=== PATIENT | male | born 1960 | race African-American/Black ===

== ENCOUNTER 2022-03-25 08:54 | Emergency (ER) | payer MEDICAID ==
[~2022-03-25] VITALS: Ht 157.5 cm; Wt 80.0 kg
[2022-03-25 08:56] VITALS: BP 111/79
[2022-03-25] MEDS ORDERED: PERM60CR4 TP (09:17)
== END 2022-03-25 09:32 | disposition home or self-care (01) ==
LOC: ER 08:54
DX: B86 Scabies (principal); I10 Essential (primary) hypertension; Z86.59 Personal history of other mental and behavioral disorders; Z98.890 Other specified postprocedural states
CPT/HCPCS: 99281

== ENCOUNTER 2023-01-04 13:54 | Emergency (ER) | payer MEDICAID, OTHER ==
[~2023-01-04] VITALS: Ht 177.8 cm; Wt 91.0 kg
[~2023-01-04 13:54] MED LIST: PERM60CR4 TP
[2023-01-04 13:55] VITALS: BP 135/74; PULSE 98; RESP 18; O2SAT 98
== END 2023-01-04 14:09 | disposition home or self-care (01) ==
LOC: ER 14:06
DX: T14.90XA Injury, unspecified, initial encounter (principal); I10 Essential (primary) hypertension; Z98.890 Other specified postprocedural states; Z86.59 Personal history of other mental and behavioral disorders; V89.2XXA Person injured in unspecified motor-vehicle accident, traffic, initial encounter; Y93.89 Activity, other specified; Y92.89 Other specified places as the place of occurrence of the external cause; Y99.8 Other external cause status
CPT/HCPCS: 99283

== ENCOUNTER 2024-01-10 14:47 | Emergency (ER) | payer OTHER ==
[~2024-01-10] VITALS: Ht 160 cm; Wt 65.0 kg
[2024-01-10 15:01] VITALS: BP 110/61; PULSE 98; RESP 16; TEMP 98; O2SAT 100
[2024-01-10] MEDS ORDERED: MUPI15CR11 TP (16:58)
== END 2024-01-10 18:11 | disposition home or self-care (01) ==
LOC: ER 15:55
DX: S50.861A Insect bite (nonvenomous) of right forearm, initial encounter (principal); I10 Essential (primary) hypertension; W57.XXXA Bitten or stung by nonvenomous insect and other nonvenomous arthropods, initial encounter; Y93.89 Activity, other specified; Y92.89 Other specified places as the place of occurrence of the external cause; Y99.8 Other external cause status
CPT/HCPCS: 99283